=== PATIENT | female | born 1970 | race Two or more races ===

== ENCOUNTER 2020-07-07 10:26 | Outpatient (CLI) | payer OTHER | END 2020-07-07 10:54 | disposition home or self-care (01) | LOC: LAB 10:26 | PROVIDERS: ATTEND Surgery | DX: D37.4 Neoplasm of uncertain behavior of colon (principal); K63.5 Polyp of colon; R19.4 Change in bowel habit ==

== ENCOUNTER 2020-07-08 10:40 | Outpatient (CLI) | payer OTHER | END 2020-07-08 10:50 | disposition home or self-care (01) | LOC: TOM 10:40 | PROVIDERS: ATTEND Surgery | DX: K63.5 Polyp of colon (principal); R19.4 Change in bowel habit; C74.02 Malignant neoplasm of cortex of left adrenal gland ==

== ENCOUNTER 2020-07-12 07:18 | Day surgery (SDC) | payer OTHER | END 2020-07-12 13:15 | disposition home or self-care (01) | LOC: AMB-ENDOS 07:18 | PROVIDERS: ATTEND Surgery | DX: K63.5 Polyp of colon (principal); K64.8 Other hemorrhoids; Z20.828 Contact with and (suspected) exposure to other viral communicable diseases ==

== ENCOUNTER 2020-08-02 09:15 | Inpatient (IN) | payer OTHER ==
[~2020-08-02] VITALS: Ht 162.6 cm; Wt 116.6 kg
[2020-08-02] MEDS ORDERED: PROTANDIM (11:38)
[2020-08-02] MEDS ORDERED: METFORMIN HCL500 M3 PO (11:38)
[2020-08-02] MEDS ORDERED: ZESTRIL10 M1 PO (11:38)
[2020-08-02] MEDS ORDERED: PRAVASTATIN SOD40 MG PO (11:39)
[2020-08-02] MEDS ORDERED: CHILDREN'S ASPI81 MG PO (11:39)
[2020-08-02] MEDS ORDERED: CO Q-10300 MG PO (11:39)
[2020-08-02] MEDS ORDERED: [UNRECOGNIZED DRUG - OTHER] (11:40)
[2020-08-08] MEDS ORDERED: ENOXAPARIN40 MG/0.4 (08:00)
[2020-08-08] MEDS ORDERED: PENTOXIFYLLINE400 MG (08:01)
[2020-08-11] MEDS ORDERED: HYOSCYAMINE0.125 M1 SL (11:38)
[2020-08-11] MEDS ORDERED: OXYC1TAB9 PO (11:39)
== END 2020-08-11 14:00 | disposition home or self-care (01) | DRG 330 ==
LOC: SURH 08-08 06:00 → O/R 08-08 06:00 → SURH 08-08 07:00
PROVIDERS: ADMIT Surgery; ATTEND Surgery
PROC: 07BC4ZX Excision of Pelvis Lymphatic, Percutaneous Endoscopic Approach, Diagnostic (ICD-10-PCS; 2020-08-08)
PROC: 4A12X4Z Monitoring of Cardiac Electrical Activity, External Approach (ICD-10-PCS; 2020-08-08)
PROC: 0DTF4ZZ Resection of Right Large Intestine, Percutaneous Endoscopic Approach (ICD-10-PCS; principal; 2020-08-08 07:00)
DX: D12.2 Benign neoplasm of ascending colon (principal); Z68.41 Body mass index [BMI] 40.0-44.9, adult; I11.9 Hypertensive heart disease without heart failure; E66.01 Morbid (severe) obesity due to excess calories; G47.33 Obstructive sleep apnea (adult) (pediatric)